=== PATIENT | female | born 1975 ===

== ENCOUNTER 2017-11-06 20:50 | Emergency (ER) | payer SELFPAY ==
[2017-11-06 20:58] VITALS: BP 155/89; PULSE 81; RESP 16; TEMP 98.3; O2SAT 98
--- NOTE | 2017-11-06 21:21 | C.PDOC ---
History Of Present Illness 42 year old female presents to the ED complaining of right elbow pain for 25 days. 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 Patient takes Motrin occasionally to help with the pain. Denies fever, chills, numbness or tingling. denies any trauma to right arm. Time Seen by Provider: 11/06/17 21:03 Chief Complaint (Nursing): Upper Extremity Problem/Injury History Per: Patient History/Exam Limitations: no limitations Onset/Duration Of Symptoms: Days (25x) Quality: "Pain" Past Medical History Reviewed: Historical Data, Nursing Documentation, Vital Signs Vital Signs: Last Vital Signs Temp 98.3 F 11/06/17 20:54 Pulse 81 11/06/17 20:54 Resp 16 11/06/17 20:54 BP 155/89 H 11/06/17 20:54 Pulse Ox 98 11/06/17 22:09 - Medical History PMH: No Chronic Diseases Family History: States: No Known Family Hx - Social History Hx Alcohol Use: No Hx Substance Use: No Review Of Systems Constitutional: Negative for: Fever, Chills Musculoskeletal: Positive for: Arm Pain (right elbow pain) Neurological: Negative for: Numbness, Other (tingling) Physical Exam - Physical Exam Appears: Well, No Acute Distress Skin: Normal Color, Warm, Dry Head: Atraumatic, Normacephalic Eye(s): bilateral: Normal Inspection Extremity: Normal ROM (able to flex, extend, supinate and pronate at elbow. ), Tenderness (lateral right epicondylar area), Capillary Refill, No Deformity, No Swelling, Other (no swellling or erythema. ) Extremity: Left: Atraumatic Pulses: Left Radial: Normal, Right Radial: Normal Neurological/Psych: Oriented x3, Normal Speech, Normal Cognition, Normal Motor, Normal Sensation ED Course And Treatment O2 Sat by Pulse Oximetry: 98 (RA) Pulse Ox Interpretation: Normal Medical Decision Making Medical Decision Making: pt with right elbow pain x 25 days. no injury. pt with tenderness to lateral epicondlye, no swelling or erythema, no fx noted on xray. will tx for tendonitis and refer to ortho for f/u Disposition Counseled Patient/Family Regarding: Studies Performed, Diagnosis, Need For Followup, Rx Given - Disposition Referrals: Ravindra Lama MD [Staff Provider] - Disposition: HOME/ ROUTINE Disposition Time: 22:01 Condition: GOOD Additional Instructions: Mantenga el codo envuelto leticia el da. Aplique compresas fras varias veces al da. Naproxeno para el dolor Por favor, keegan los movimientos repetitivos. Seguimiento de Antoinette con nettles mdico de atencin primaria y el ortopedista Dr. Lama. Llame el lunes para las citas. Keep elbow wrapped during the daytime hours. Apply cold compresses several times a day. Naproxen for pain. Please avoid repetitive motions. [place] follow up with your primary care doctor and orthopedist Dr Lama. Call on Thursday for appointments. Prescriptions: Naproxen 500 mg PO BID #20 tab Instructions: Lateral Epicondylitis (DC), Lateral Epicondylitis Exercises, Elbow Tendinopathy (Tennis and Golf Elbow) Forms: Gen Discharge Inst Austrian, [employer] (Austrian) Print Language: [place] - Clinical Impression Clinical Impression: Lateral epicondylitis of right elbow - PA / HAT AND CAP SEWER / Resident Statement MD/DO has reviewed & agrees with the documentation as recorded. - Scribe Statement The provider has reviewed the documentation as recorded by the Scribe Jeanne Macdonald
--- NOTE | 2017-11-07 08:46 | RAD ---
Right elbow three views History: Elbow pain. Comparison: None available. Findings: No evidence of acute displaced fracture or dislocation. No significant elbow joint effusion. Impression: Negative acute. If pain persists, consider MRI.
== END 2017-11-06 22:14 | disposition home or self-care (01) ==
LOC: C.ER 20:50
DX: M77.11 Lateral epicondylitis, right elbow (principal)